=== PATIENT | male | born 1935 | race Caucasian/White ===

== ENCOUNTER → 2017-05-24 | Outpatient (CLI) | payer MEDICARE ==
[~2017-05-24] MED LIST: ADV500 IH; ALLO300T2 PO; AMLO10TA2 PO; ASPI-1012 PO; ATEN100T PO; CETI-101 PO; FURO-152 PO; GEMF600T3 PO; IMIP25TA5 PO; PATI8.4P PO
== END | disposition home or self-care (01) ==
LOC: RAH 12:57
PROVIDERS: ATTEND Urology
DX: N28.1 Cyst of kidney, acquired (principal); N28.89 Other specified disorders of kidney and ureter
CPT/HCPCS: 76770

== ENCOUNTER 2017-08-19 14:42 | Inpatient (IN) | payer MEDICARE ==
[~2017-08-19] VITALS: Ht 185.4 cm; Wt 111.4 kg
[~2017-08-19 14:42] MED LIST changes: -ADV500 IH; -ALLO300T2 PO; -AMLO10TA2 PO; -ASPI-1012 PO; -ATEN100T PO; -CETI-101 PO; +ETOMIDATE 2 MG/ML 10 ML VIAL IVP ONE; -FURO-152 PO; -GEMF600T3 PO; -IMIP25TA5 PO; -PATI8.4P PO; +ROCURONIUM BROMIDE 10MG/1ML 5ML VL IV ONE
[2017-08-19] MEDS ORDERED: IPRATROPIUM/ALBUTEROL SULFATE 3 ML SOLUTION IH ONE ×3 (14:59→19:27)
[2017-08-19 15:06] LABS: BASOPHILS % (AUTO) 0.2 % (0.0-5.0); EOSINOPHILS % (AUTO) 0.4 % (0.0-8.0); HEMATOCRIT 36.8 % (42-54); LYMPHOCYTES % (AUTO) 4.2 % (21.0-51.0); MEAN CORPUSCULAR HEMOGLOBIN 31.3 pg (27.0-33.0); MEAN CORPUSCULAR HGB CONC 33.1 g/dL (32.0-36.0); MEAN CORPUSCULAR VOLUME 94.3 fL (79-99); MONOCYTES % (AUTO) 5.7 % (3.0-13.0); NEUTROPHILS % (AUTO) 89.5 % (40.0-77.0); PLATELET COUNT (AUTO) 229 K/uL (130-400); WHITE BLOOD COUNT (AUTO) 22.2 K/uL (4.8-10.8)
[2017-08-19 15:16] LABS: CREATININE 2.6 mg/dL (0.5-1.5); POTASSIUM 4.5 mmol/L (3.5-5.1)
[2017-08-19 15:20] LABS: ALBUMIN 3.1 g/dL (3.5-5.0); BILIRUBIN,TOTAL 0.4 mg/dL (0.2-1.0)
[2017-08-19 15:29] LABS: B-TYPE NATRIURETIC PEPTIDE 418 pg/mL (0-100)
[2017-08-19] MEDS ORDERED: CEFTRIAXONE SODIUM 1 GM ONE (16:41)
[2017-08-19] MEDS ORDERED: AZITHROMYCIN 500MG+NS 250ML 250 ML IV ONE (16:42)
[2017-08-19] MEDS ORDERED: SODIUM CHLORIDE 0.9% 50 ML IV ONE (16:42)
[2017-08-19] MEDS ORDERED: METHYLPREDNISOLONE SOD SUCC 125MG/2ML VIAL ONE (17:23)
[2017-08-19] MEDS ORDERED: FUROSEMIDE 10 MG/ML 4ML VIAL ONE (18:54)
[2017-08-19] MEDS ORDERED: NITROGLYCERIN 1GM/1 INCH PACKET TD ONE (18:56)
[2017-08-19 20:42] LABS: ABG BASE EXCESS -6.4 mmol/L (-2.0-3.0); ABG HCO3 17.8 mmol/L (21.0-28.0); ABG OXYGEN SATURATION 94.1 % (95.0-99.0); ABG PCO2 32 mmHg (35-48)
[2017-08-19] MEDS ORDERED: LEVOFLOXACIN 500 MG/D5W 100 ML 100 ML ONE (21:26)
[2017-08-20] MEDS ORDERED: POTASSIUM CHLORIDE 10% ELIXIR 20 MEQ/15 ML UDCUP PO PRN ×2 (00:45→12:45)
[2017-08-20] MEDS ORDERED: ACETAMINOPHEN 325 MG TAB PO PRN ×3 (00:45→12:45)
[2017-08-20] MEDS ORDERED: LIDOCAINE HCL-MPF 1% 2ML VIAL IVP PRN (00:45)
[2017-08-20] MEDS ORDERED: POTASSIUM CHLORIDE 20 MEQ ERTAB PO PRN ×2 (00:45→12:45)
[2017-08-20] MEDS ORDERED: MORPHINE SULFATE 2 MG/ML 1ML SYG IVP PRN (00:45)
[2017-08-20] MEDS ORDERED: LACTULOSE 20 GM/30 ML UDCUP PO PRN ×2 (00:45→12:45)
[2017-08-20] MEDS ORDERED: POTASSIUM CHLORIDE 20MEQ/100ML 100 ML IV PRN ×2 (00:45→12:45)
[2017-08-20] MEDS ORDERED: IPRATROPIUM/ALBUTEROL SULFATE 3 ML SOLUTION IH ONE ×3 (02:39→12:21)
[2017-08-20] MEDS ORDERED: MORPHINE SULFATE 4 MG/1ML SYG IVP PRN (06:15)
[2017-08-20 06:28] LABS: BASOPHILS % (AUTO) 0.4 % (0.0-5.0); HEMATOCRIT 37.6 % (42-54); LYMPHOCYTES % (AUTO) 2.6 % (21.0-51.0); MEAN CORPUSCULAR HEMOGLOBIN 31.2 pg (27.0-33.0); MEAN CORPUSCULAR HGB CONC 32.6 g/dL (32.0-36.0); MEAN CORPUSCULAR VOLUME 95.7 fL (79-99); MONOCYTES % (AUTO) 1.8 % (3.0-13.0); NEUTROPHILS % (AUTO) 95.2 % (40.0-77.0); PLATELET COUNT (AUTO) 198 K/uL (130-400); RED BLOOD CELL COUNT(AUTO) 3.93 MIL/uL (4.50-6.20); RED CELL DISTRIBUTION WIDTH 17.1 % (11.0-15.5)
[2017-08-20] MEDS ORDERED: METHYLPREDNISOLONE SOD SUCC 125MG/2ML VIAL ONE (06:32)
[2017-08-20 06:36] LABS: CREATININE 2.6 mg/dL (0.5-1.5); POTASSIUM 4.6 mmol/L (3.5-5.1)
[2017-08-20 07:45] LABS: B-TYPE NATRIURETIC PEPTIDE 576 pg/mL (0-100)
[2017-08-20] MEDS ORDERED: FAMOTIDINE 20MG TAB 20 MG TAB PO SCH (09:00)
[2017-08-20] MEDS ORDERED: LIDOCAINE HCL-MPF 1% 2ML VIAL IJ PRN (12:45)
[2017-08-20] MEDS ORDERED: GUAIFENESIN-DM 200/20 MG 10 ML PO PRN (12:45)
[2017-08-20] MEDS ORDERED: SODIUM CHLORIDE 0.9% 10 ML VIAL IVP SCH (12:45)
[2017-08-20] MEDS ORDERED: ONDANSETRON HCL MDV 20ML 2 MG/ML VIAL IVP PRN (12:45)
[2017-08-20 14:27] VITALS: BP 140/76
[2017-08-20] MEDS ORDERED: ALLO300T2 PO (15:38)
[2017-08-20] MEDS ORDERED: IMIP25TA5 PO (15:38)
[2017-08-20] MEDS ORDERED: FURO-152 PO (15:38)
[2017-08-20] MEDS ORDERED: GEMF600T3 PO (15:38)
[2017-08-20] MEDS ORDERED: AMLO10TA2 PO (15:38)
[2017-08-20] MEDS ORDERED: ASPI-1012 PO (15:38)
[2017-08-20] MEDS ORDERED: ADV500 IH (15:40)
[2017-08-20] MEDS: METHYLPREDNISOLONE SOD SUCC 125MG/2ML VIAL IVP SCH ×2 (15:42→22:41)
[2017-08-20] MEDS ORDERED: CETI-101 PO (15:46)
[2017-08-20 16:56] VITALS: BP 156/55
[2017-08-20 19:00] VITALS: BP 162/81
[2017-08-20] MEDS: IPRATROPIUM/ALBUTEROL SULFATE 3 ML SOLUTION IH SCH ×2 (19:20→23:00)
[2017-08-20] MEDS: BUDESONIDE 0.5 MG/2 ML INH IH SCH (19:28)
[2017-08-20] MEDS: FAMOTIDINE 20MG TAB 20 MG TAB PO SCH (20:34)
[2017-08-20] MEDS: GEMFIBROZIL 600 MG TABLET PO SCH (20:34)
[2017-08-20] MEDS: FUROSEMIDE 20 MG TABLET PO SCH (20:34)
[2017-08-20] MEDS: LEVOFLOXACIN 500 MG/D5W 100 ML 100 ML IV SCH (20:35)
[2017-08-20] MEDS: HYDRALAZINE HCL 20 MG/ML VIAL IV PRN (20:35)
[2017-08-20 22:10] VITALS: BP 147/65
[2017-08-20 23:45] VITALS: BP 153/85
[2017-08-20] MEDS ORDERED: FUROSEMIDE 10 MG/ML 2ML VIAL ONE (23:58)
[2017-08-20] MEDS ORDERED: ALPRAZOLAM 0.25 MG TABLET ONE (23:59)
[2017-08-21] VITALS (9 sets, daily range): BP systolic 134–175; BP diastolic 50–111
[2017-08-21] MEDS ORDERED: FUROSEMIDE 10 MG/ML 2ML VIAL IV SCH
[2017-08-21 03:59] LABS: BASOPHILS % (AUTO) 0.1 % (0.0-5.0); HEMATOCRIT 36.3 % (42-54); MEAN CORPUSCULAR HEMOGLOBIN 31.4 pg (27.0-33.0); MEAN CORPUSCULAR HGB CONC 33.1 g/dL (32.0-36.0); MEAN CORPUSCULAR VOLUME 94.9 fL (79-99); MONOCYTES % (AUTO) 1.8 % (3.0-13.0); NEUTROPHILS % (AUTO) 95.1 % (40.0-77.0); PLATELET COUNT (AUTO) 181 K/uL (130-400); RED BLOOD CELL COUNT(AUTO) 3.82 MIL/uL (4.50-6.20); RED CELL DISTRIBUTION WIDTH 17.1 % (11.0-15.5); WHITE BLOOD COUNT (AUTO) 13.5 K/uL (4.8-10.8)
[2017-08-21 04:02] LABS: CREATININE 3.2 mg/dL (0.5-1.5); POTASSIUM 5.4 mmol/L (3.5-5.1)
[2017-08-21 04:17] LABS: B-TYPE NATRIURETIC PEPTIDE 486 pg/mL (0-100)
[2017-08-21] MEDS: HYDRALAZINE HCL 20 MG/ML VIAL IV PRN (04:22)
[2017-08-21] MEDS: BUDESONIDE 0.5 MG/2 ML INH IH SCH ×2 (06:57→18:34)
[2017-08-21] MEDS: IPRATROPIUM/ALBUTEROL SULFATE 3 ML SOLUTION IH SCH ×4 (06:57→22:17)
[2017-08-21] MEDS: METHYLPREDNISOLONE SOD SUCC 125MG/2ML VIAL IVP SCH ×3 (07:23→23:17)
[2017-08-21] MEDS ORDERED: ALLOPURINOL 300 MG TABLET PO SCH (09:00)
[2017-08-21] MEDS: ASPIRIN 325 MG TABLET PO SCH (09:54)
[2017-08-21] MEDS: CETIRIZINE HCL 5 MG TABLET PO SCH (10:00)
[2017-08-21] MEDS: FAMOTIDINE 20MG TAB 20 MG TAB PO SCH ×2 (10:01→21:09)
[2017-08-21] MEDS: AMLODIPINE BESYLATE 5 MG TAB PO SCH (10:01)
[2017-08-21] MEDS: AMITRIPTYLINE HCL 25 MG TABLET PO SCH (10:01)
[2017-08-21] MEDS: FUROSEMIDE 20 MG TABLET PO SCH (10:01)
[2017-08-21] MEDS: GEMFIBROZIL 600 MG TABLET PO SCH ×2 (10:01→21:09)
[2017-08-21] MEDS ORDERED: ATEN100T PO (10:08)
[2017-08-21] MEDS ORDERED: PATI8.4P PO (10:16)
[2017-08-21] MEDS ORDERED: OSELTAMIVIR PHOSPHATE 75 MG CAP PO SCH (14:15)
[2017-08-21] MEDS ORDERED: SODIUM POLYSTYRENE SULFONATE 15 GM/60 ML ML PO SCH (14:15)
[2017-08-21] MEDS ORDERED: PHARMACY COMMUNICATION MISC SCH (14:15)
[2017-08-21] MEDS ORDERED: AZTREONAM 1 GM in SODIUM CHLORIDE 0.9% 50 ML IV SCH (14:15)
[2017-08-21] MEDS ORDERED: COMPOUND PO MISCELLANEOUS 1 EACH MISC MISC PRN (16:00)
[2017-08-21] MEDS ORDERED: VANCOMYCIN PROTOCOL PER PHARMACY IV SCH (16:15)
[2017-08-21] MEDS ORDERED: COMPOUND IV REFRIGERATED 1 EACH IVSOLN MISC PRN (16:15)
[2017-08-21] MEDS ORDERED: VANCOMYCIN 2 GM in SODIUM CHLORIDE 0.9% 500ML 500 ML IV ONE (16:30)
[2017-08-21] MEDS: ALPRAZOLAM 0.25 MG TABLET PO PRN (17:33)
[2017-08-21] MEDS: AZTREONAM 1 GM VIAL IVP SCH (17:33)
[2017-08-21] MEDS: OSELTAMIVIR PHOSPHATE 300 MG, COMPOUNDING VEHICLE SF NO.9 50 ML PO SCH ×2 (17:38)
[2017-08-21] MEDS: LEVOFLOXACIN 500 MG/D5W 100 ML 100 ML IV SCH (21:10)
[2017-08-22] MEDS: ALPRAZOLAM 0.25 MG TABLET PO PRN ×2 (00:47→21:48)
[2017-08-22] MEDS: IPRATROPIUM/ALBUTEROL SULFATE 3 ML SOLUTION IH SCH ×6 (01:41→22:05)
[2017-08-22 03:50] LABS: BASOPHILS % (AUTO) 0.1 % (0.0-5.0); HEMATOCRIT 36.3 % (42-54); LYMPHOCYTES % (AUTO) 2.5 % (21.0-51.0); MEAN CORPUSCULAR HEMOGLOBIN 31.6 pg (27.0-33.0); MEAN CORPUSCULAR HGB CONC 32.9 g/dL (32.0-36.0); MEAN CORPUSCULAR VOLUME 96.2 fL (79-99); MONOCYTES % (AUTO) 2.4 % (3.0-13.0); NUCLEATED RED BLOOD CELLS 0.1 % (0.0-0.19); PLATELET COUNT (AUTO) 184 K/uL (130-400); RED BLOOD CELL COUNT(AUTO) 3.78 MIL/uL (4.50-6.20); RED CELL DISTRIBUTION WIDTH 17.2 % (11.0-15.5); WHITE BLOOD COUNT (AUTO) 12.7 K/uL (4.8-10.8)
[2017-08-22 03:50] LABS: ABG BASE EXCESS -5.5 mmol/L (-2.0-3.0); ABG HCO3 21.4 mmol/L (21.0-28.0); ABG OXYGEN SATURATION 96.2 % (95.0-99.0); ABG PCO2 46 mmHg (35-48)
[2017-08-22 04:01] LABS: B-TYPE NATRIURETIC PEPTIDE 520 pg/mL (0-100)
[2017-08-22 04:08] VITALS: BP 152/72
[2017-08-22 04:18] LABS: ALBUMIN 2.7 g/dL (3.5-5.0); BILIRUBIN,TOTAL 0.2 mg/dL (0.2-1.0); MAGNESIUM 2.9 mg/dL (1.80-2.40); PHOSPHORUS 5.2 mg/dL (2.5-4.9); TOTAL PROTEIN, SERUM 6.4 g/dL (6.0-8.3)
[2017-08-22] MEDS: METHYLPREDNISOLONE SOD SUCC 125MG/2ML VIAL IVP SCH ×3 (06:32→23:10)
[2017-08-22] MEDS: BUDESONIDE 0.5 MG/2 ML INH IH SCH ×2 (06:35→19:22)
[2017-08-22 08:00] VITALS: BP_SYST 120; BP_SYST 158; BP_DIAS 69; BP_DIAS 77
[2017-08-22] MEDS ORDERED: ATENOLOL 50 MG TABLET PO SCH (09:00)
[2017-08-22] MEDS: FAMOTIDINE 20MG TAB 20 MG TAB PO SCH ×2 (09:08→21:48)
[2017-08-22] MEDS: GEMFIBROZIL 600 MG TABLET PO SCH ×2 (09:08→21:48)
[2017-08-22] MEDS: AMLODIPINE BESYLATE 5 MG TAB PO SCH (09:10)
[2017-08-22] MEDS: ASPIRIN 325 MG TABLET PO SCH (09:10)
[2017-08-22] MEDS: CETIRIZINE HCL 5 MG TABLET PO SCH (09:12)
[2017-08-22] MEDS: ALLOPURINOL 300 MG TABLET PO SCH (09:16)
[2017-08-22] MEDS: AMITRIPTYLINE HCL 25 MG TABLET PO SCH (09:18)
[2017-08-22] MEDS: OSELTAMIVIR PHOSPHATE 300 MG, COMPOUNDING VEHICLE SF NO.9 50 ML PO SCH ×2 (09:27)
[2017-08-22] MEDS: ATENOLOL 50 MG TABLET PO SCH (09:32)
[2017-08-22 11:00] VITALS: BP 149/78
[2017-08-22] MEDS: AZTREONAM 1 GM VIAL IVP SCH (15:09)
[2017-08-22 16:00] VITALS: BP 172/80
[2017-08-22 19:25] VITALS: BP 147/61
[2017-08-22] MEDS: LEVOFLOXACIN 500 MG/D5W 100 ML 100 ML IV SCH (21:48)
[2017-08-23] VITALS (9 sets, daily range): BP systolic 133–166; BP diastolic 56–91
[2017-08-23] MEDS ORDERED: PATI8.4P PO (01:32)
[2017-08-23] MEDS: IPRATROPIUM/ALBUTEROL SULFATE 3 ML SOLUTION IH SCH ×6 (01:46→21:53)
[2017-08-23 04:44] LABS: BASOPHILS % (AUTO) 0.1 % (0.0-5.0); HEMATOCRIT 38.3 % (42-54); LYMPHOCYTES % (AUTO) 2.3 % (21.0-51.0); MEAN CORPUSCULAR HGB CONC 32.2 g/dL (32.0-36.0); MEAN CORPUSCULAR VOLUME 96.4 fL (79-99); MONOCYTES % (AUTO) 2.6 % (3.0-13.0); NUCLEATED RED BLOOD CELLS 0.2 % (0.0-0.19); PLATELET COUNT (AUTO) 158 K/uL (130-400); RED BLOOD CELL COUNT(AUTO) 3.98 MIL/uL (4.50-6.20); RED CELL DISTRIBUTION WIDTH 17.2 % (11.0-15.5); WHITE BLOOD COUNT (AUTO) 9.1 K/uL (4.8-10.8)
[2017-08-23 05:01] LABS: ALBUMIN 2.7 g/dL (3.5-5.0); BILIRUBIN,TOTAL 0.2 mg/dL (0.2-1.0); MAGNESIUM 2.9 mg/dL (1.80-2.40); PHOSPHORUS 5.5 mg/dL (2.5-4.9); POTASSIUM 4.9 mmol/L (3.5-5.1); TOTAL PROTEIN, SERUM 6.2 g/dL (6.0-8.3)
[2017-08-23] MEDS: BUDESONIDE 0.5 MG/2 ML INH IH SCH ×2 (06:14→18:33)
[2017-08-23] MEDS: METHYLPREDNISOLONE SOD SUCC 125MG/2ML VIAL IVP SCH ×3 (06:29→22:44)
[2017-08-23] MEDS: ATENOLOL 50 MG TABLET PO SCH (09:00)
[2017-08-23] MEDS: OSELTAMIVIR PHOSPHATE 300 MG, COMPOUNDING VEHICLE SF NO.9 50 ML PO SCH ×2 (09:58)
[2017-08-23] MEDS: AMITRIPTYLINE HCL 25 MG TABLET PO SCH (09:59)
[2017-08-23] MEDS: FAMOTIDINE 20MG TAB 20 MG TAB PO SCH ×2 (09:59→20:54)
[2017-08-23] MEDS: ASPIRIN 325 MG TABLET PO SCH (10:01)
[2017-08-23] MEDS: CETIRIZINE HCL 5 MG TABLET PO SCH (10:01)
[2017-08-23] MEDS: ALLOPURINOL 300 MG TABLET PO SCH (10:01)
[2017-08-23] MEDS: GEMFIBROZIL 600 MG TABLET PO SCH ×2 (10:02→20:54)
[2017-08-23] MEDS: AMLODIPINE BESYLATE 5 MG TAB PO SCH (10:10)
[2017-08-23 11:41] LABS: ABG BASE EXCESS -6.2 mmol/L (-2.0-3.0); ABG HCO3 20.6 mmol/L (21.0-28.0); ABG OXYGEN SATURATION 96.9 % (95.0-99.0); ABG PCO2 45 mmHg (35-48)
[2017-08-23] MEDS ORDERED: PHARMACY COMMUNICATION MISC SCH (16:00)
[2017-08-23] MEDS: VANCOMYCIN 1.25 GM in SODIUM CHLORIDE 0.9% 250 ML IV SCH (17:00)
[2017-08-23] MEDS: AZTREONAM 1 GM VIAL IVP SCH (17:06)
[2017-08-23] MEDS: FUROSEMIDE 10 MG/ML 4ML VIAL IV SCH (17:06)
[2017-08-23 17:19] LABS: APPEARANCE,URINE Cloudy (CLEAR); BILIRUBIN,URINE Negative (NEGATIVE); COLOR,URINE Yellow (YELLOW); GLUCOSE, URINE (UA) Negative (NEGATIVE); KETONES,URINE Negative (NEGATIVE); LEUKOCYTE ESTERASE ,URINE Small (NEGATIVE); NITRATE,URINE Positive (NEGATIVE); OCCULT BLOOD,URINE Large (NEGATIVE); PROTEIN,URINE POS 2+ (NEGATIVE); UROBILINOGEN,URINE 0.2 mg/dL (0.2-1.0)
[2017-08-23 17:29] LABS: RBC,URINE 26-50 /HPF (0-1)
[2017-08-23 17:30] LABS: BACTERIA,URINE Moderate /HPF (None Seen); MUCUS,URINE Few LPF (None Seen); SQUAMOUS EPITHELIAL CELL,UR 0-2 /HPF (0-2); WBC,URINE 26-50 /HPF (0-1)
[2017-08-23] MEDS: MEROPENEM 500 MG VIAL IVP SCH (19:21)
[2017-08-23] MEDS: LEVOFLOXACIN 500 MG/D5W 100 ML 100 ML IV SCH (20:54)
[2017-08-23] MEDS ORDERED: MEROPENEM 500MG+NS 50ML 50 ML IV SCH (22:00)
[2017-08-24] VITALS (28 sets, daily range): BP systolic 149–192; BP diastolic 54–107
[2017-08-24] MEDS: HYDRALAZINE HCL 20 MG/ML VIAL IV PRN ×3 (01:09→20:32)
[2017-08-24] MEDS: IPRATROPIUM/ALBUTEROL SULFATE 3 ML SOLUTION IH SCH ×6 (01:46→21:21)
[2017-08-24] MEDS: MEROPENEM 500 MG VIAL IVP SCH ×3 (02:20→18:28)
[2017-08-24] MEDS: FUROSEMIDE 10 MG/ML 4ML VIAL IV SCH ×2 (03:10→15:20)
[2017-08-24 04:19] LABS: HEMATOCRIT 39.8 % (42-54); LYMPHOCYTES % (AUTO) 1.4 % (21.0-51.0); MEAN CORPUSCULAR HEMOGLOBIN 31.4 pg (27.0-33.0); MEAN CORPUSCULAR HGB CONC 32.5 g/dL (32.0-36.0); MEAN CORPUSCULAR VOLUME 96.6 fL (79-99); MONOCYTES % (AUTO) 3.5 % (3.0-13.0); NEUTROPHILS % (AUTO) 95.1 % (40.0-77.0); NUCLEATED RED BLOOD CELLS 0.1 % (0.0-0.19); PLATELET COUNT (AUTO) 160 K/uL (130-400); RED BLOOD CELL COUNT(AUTO) 4.12 MIL/uL (4.50-6.20); RED CELL DISTRIBUTION WIDTH 17.1 % (11.0-15.5); WHITE BLOOD COUNT (AUTO) 10.8 K/uL (4.8-10.8)
[2017-08-24 04:38] LABS: ALBUMIN 2.8 g/dL (3.5-5.0); BILIRUBIN,TOTAL 0.2 mg/dL (0.2-1.0); CREATININE 3.2 mg/dL (0.5-1.5); PHOSPHORUS 5.3 mg/dL (2.5-4.9); POTASSIUM 4.8 mmol/L (3.5-5.1); THYROID STIMULATING HORMONE 0.56 uIU/mL (0.36-3.74); TOTAL PROTEIN, SERUM 6.6 g/dL (6.0-8.3); URIC ACID 6.2 mg/dL (2.6-7.2)
[2017-08-24] MEDS: METHYLPREDNISOLONE SOD SUCC 125MG/2ML VIAL IVP SCH ×3 (05:54→23:46)
[2017-08-24] MEDS: BUDESONIDE 0.5 MG/2 ML INH IH SCH ×2 (07:39→18:41)
[2017-08-24] MEDS: THIAMINE HCL 100 MG TABLET PO SCH (08:43)
[2017-08-24] MEDS: CETIRIZINE HCL 5 MG TABLET PO SCH (08:43)
[2017-08-24] MEDS: FAMOTIDINE 20MG TAB 20 MG TAB PO SCH ×2 (08:43→20:31)
[2017-08-24] MEDS: FOLIC ACID/VITAMIN B COMP W-C 1 MG CAPSULE PO SCH (08:44)
[2017-08-24] MEDS: ALLOPURINOL 300 MG TABLET PO SCH (08:44)
[2017-08-24] MEDS: GEMFIBROZIL 600 MG TABLET PO SCH ×2 (08:44→20:31)
[2017-08-24] MEDS: ASPIRIN 325 MG TABLET PO SCH (08:44)
[2017-08-24] MEDS: AMLODIPINE BESYLATE 5 MG TAB PO SCH (08:44)
[2017-08-24] MEDS: AMITRIPTYLINE HCL 25 MG TABLET PO SCH (08:45)
[2017-08-24] MEDS: ENOXAPARIN SODIUM 30 MG/0.3 ML SQ SCH (08:46)
[2017-08-24] MEDS: OSELTAMIVIR PHOSPHATE 300 MG, COMPOUNDING VEHICLE SF NO.9 50 ML PO SCH ×2 (08:48)
[2017-08-24] MEDS: ACETYLCYSTEINE 20% 200MG/ML 4ML VIAL IH SCH ×2 (14:25→21:21)
[2017-08-24] MEDS: ALPRAZOLAM 0.25 MG TABLET PO PRN ×2 (16:03→21:29)
[2017-08-24] MEDS ORDERED: LABETALOL 20 MG/4 ML DISP.SYRIN IV PRN (17:45)
[2017-08-24] MEDS: HYDRALAZINE HCL 25 MG TABLET PO SCH ×3 (17:52→20:36)
[2017-08-24] MEDS ORDERED: LABETALOL HCL 5 MG/ML 20ML VIAL IV ONE (17:59)
[2017-08-24] MEDS ORDERED: LABETALOL HCL 5 MG/ML 20ML VIAL IV PRN (18:00)
[2017-08-24 19:14] LABS: ABG BASE EXCESS -2.7 mmol/L (-2.0-3.0); ABG HCO3 23.7 mmol/L (21.0-28.0); ABG OXYGEN SATURATION 99.3 % (95.0-99.0); ABG PCO2 47 mmHg (35-48)
[2017-08-24] MEDS: LEVOFLOXACIN 500 MG/D5W 100 ML 100 ML IV SCH (20:32)
[2017-08-24] MEDS ORDERED: LORAZEPAM 2 MG/ML 1 ML VIAL IVP ONE (23:30)
[2017-08-24] MEDS ORDERED: LORAZEPAM 2 MG/ML 1 ML VIAL ONE (23:32)
[2017-08-25] VITALS (33 sets, daily range): BP systolic 114–175; BP diastolic 43–82
[2017-08-25] MEDS: IPRATROPIUM/ALBUTEROL SULFATE 3 ML SOLUTION IH SCH ×6 (01:20→22:41)
[2017-08-25] MEDS: MEROPENEM 500 MG VIAL IVP SCH ×3 (02:42→19:36)
[2017-08-25 04:30] LABS: HEMATOCRIT 39.9 % (42-54); MEAN CORPUSCULAR HEMOGLOBIN 31.1 pg (27.0-33.0); MEAN CORPUSCULAR HGB CONC 32.8 g/dL (32.0-36.0); MEAN CORPUSCULAR VOLUME 95.1 fL (79-99); NUCLEATED RED BLOOD CELLS 0.1 % (0.0-0.19); PLATELET COUNT (AUTO) 166 K/uL (130-400); RED BLOOD CELL COUNT(AUTO) 4.19 MIL/uL (4.50-6.20); RED CELL DISTRIBUTION WIDTH 17.1 % (11.0-15.5)
[2017-08-25 04:46] LABS: POTASSIUM 5.2 mmol/L (3.5-5.1)
[2017-08-25] MEDS: METHYLPREDNISOLONE SOD SUCC 125MG/2ML VIAL IVP SCH ×4 (05:49→23:31)
[2017-08-25] MEDS: ACETYLCYSTEINE 20% 200MG/ML 4ML VIAL IH SCH (06:34)
[2017-08-25] MEDS: BUDESONIDE 0.5 MG/2 ML INH IH SCH ×2 (07:05→19:11)
[2017-08-25 07:36] LABS: ABG BASE EXCESS -5.4 mmol/L (-2.0-3.0); ABG HCO3 21.7 mmol/L (21.0-28.0); ABG OXYGEN SATURATION 92.6 % (95.0-99.0); ABG PCO2 49 mmHg (35-48)
[2017-08-25] MEDS ORDERED: SODIUM CHLORIDE 0.9% 1000ML 1,000 ML IV ONE (07:56)
[2017-08-25] MEDS ORDERED: PROPOFOL 1000 MG/100 ML 100 ML IV ONE (08:09)
[2017-08-25] MEDS ORDERED: PROPOFOL 1000 MG/100 ML IV PRN (08:30)
[2017-08-25] MEDS: FAMOTIDINE 20MG TAB 20 MG TAB PO SCH ×2 (09:00→20:21)
[2017-08-25] MEDS: GEMFIBROZIL 600 MG TABLET PO SCH ×2 (09:00→20:20)
[2017-08-25] MEDS: ASPIRIN 325 MG TABLET PO SCH (09:00)
[2017-08-25] MEDS: AMLODIPINE BESYLATE 5 MG TAB PO SCH (09:00)
[2017-08-25] MEDS: ALLOPURINOL 300 MG TABLET PO SCH (09:00)
[2017-08-25] MEDS: CETIRIZINE HCL 5 MG TABLET PO SCH (09:00)
[2017-08-25] MEDS: AMITRIPTYLINE HCL 25 MG TABLET PO SCH (09:00)
[2017-08-25] MEDS: OSELTAMIVIR PHOSPHATE 300 MG, COMPOUNDING VEHICLE SF NO.9 50 ML PO SCH ×2 (09:00)
[2017-08-25] MEDS: FOLIC ACID/VITAMIN B COMP W-C 1 MG CAPSULE PO SCH (09:00)
[2017-08-25] MEDS: HYDRALAZINE HCL 25 MG TABLET PO SCH ×3 (09:00→20:20)
[2017-08-25] MEDS: THIAMINE HCL 100 MG TABLET PO SCH (09:00)
[2017-08-25 09:54] LABS: ABG BASE EXCESS -6.2 mmol/L (-2.0-3.0); ABG HCO3 20.5 mmol/L (21.0-28.0); ABG OXYGEN SATURATION 94.4 % (95.0-99.0); ABG PCO2 45 mmHg (35-48)
[2017-08-25] MEDS ORDERED: SODIUM CHLORIDE 0.9% 1000ML 1,000 ML IV SCH (10:45)
[2017-08-25] MEDS: FUROSEMIDE 10 MG/ML 4ML VIAL IV SCH (11:36)
[2017-08-25] MEDS: ENOXAPARIN SODIUM 30 MG/0.3 ML SQ SCH (11:40)
[2017-08-25] MEDS: FENTANYL 2500MCG+NS 250ML 250 ML IV PRN (12:12)
[2017-08-25] MEDS: PROPOFOL 1000 MG/100 ML 100 ML IV PRN ×3 (13:05→21:28)
[2017-08-25] MEDS: VANCOMYCIN 1.25 GM in SODIUM CHLORIDE 0.9% 250 ML IV SCH (14:48)
[2017-08-25] MEDS: LEVOFLOXACIN 500 MG/D5W 100 ML 100 ML IV SCH (20:21)
[2017-08-26] VITALS (26 sets, daily range): BP systolic 119–152; BP diastolic 42–63
[2017-08-26] MEDS: IPRATROPIUM/ALBUTEROL SULFATE 3 ML SOLUTION IH SCH ×5 (02:37→22:08)
[2017-08-26] MEDS: MEROPENEM 500 MG VIAL IVP SCH ×3 (02:40→19:34)
[2017-08-26 04:10] LABS: HEMATOCRIT 36.5 % (42-54); MEAN CORPUSCULAR HEMOGLOBIN 30.9 pg (27.0-33.0); MEAN CORPUSCULAR HGB CONC 32.8 g/dL (32.0-36.0); MEAN CORPUSCULAR VOLUME 94.3 fL (79-99); NUCLEATED RED BLOOD CELLS 0.1 % (0.0-0.19); PLATELET COUNT (AUTO) 135 K/uL (130-400); RED BLOOD CELL COUNT(AUTO) 3.87 MIL/uL (4.50-6.20); RED CELL DISTRIBUTION WIDTH 16.4 % (11.0-15.5); WHITE BLOOD COUNT (AUTO) 11.3 K/uL (4.8-10.8)
[2017-08-26 04:21] LABS: CREATININE 3.4 mg/dL (0.5-1.5); POTASSIUM 5.1 mmol/L (3.5-5.1)
[2017-08-26 04:40] LABS: ABG BASE EXCESS -2.6 mmol/L (-2.0-3.0); ABG HCO3 22.2 mmol/L (21.0-28.0); ABG OXYGEN SATURATION 96.9 % (95.0-99.0); ABG PCO2 39 mmHg (35-48)
[2017-08-26] MEDS: METHYLPREDNISOLONE SOD SUCC 125MG/2ML VIAL IVP SCH ×4 (05:54→23:29)
[2017-08-26] MEDS: BUDESONIDE 0.5 MG/2 ML INH IH SCH ×2 (06:04→19:23)
[2017-08-26] MEDS: FENTANYL 2500MCG+NS 250ML 250 ML IV PRN (06:37)
[2017-08-26] MEDS: PROPOFOL 1000 MG/100 ML 100 ML IV PRN ×3 (06:37→23:29)
[2017-08-26] MEDS: FUROSEMIDE 10 MG/ML 4ML VIAL IV SCH (08:54)
[2017-08-26] MEDS: ENOXAPARIN SODIUM 30 MG/0.3 ML SQ SCH (08:54)
[2017-08-26] MEDS: GEMFIBROZIL 600 MG TABLET PO SCH ×2 (08:55→20:11)
[2017-08-26] MEDS: AMLODIPINE BESYLATE 5 MG TAB PO SCH (08:55)
[2017-08-26] MEDS: FAMOTIDINE 20MG TAB 20 MG TAB PO SCH ×2 (08:55→20:11)
[2017-08-26] MEDS: THIAMINE HCL 100 MG TABLET PO SCH (08:55)
[2017-08-26] MEDS: ASPIRIN 325 MG TABLET PO SCH (08:55)
[2017-08-26] MEDS: ALLOPURINOL 300 MG TABLET PO SCH (08:55)
[2017-08-26] MEDS: FOLIC ACID/VITAMIN B COMP W-C 1 MG CAPSULE PO SCH (08:55)
[2017-08-26] MEDS: AMITRIPTYLINE HCL 25 MG TABLET PO SCH (08:55)
[2017-08-26] MEDS: HYDRALAZINE HCL 25 MG TABLET PO SCH ×3 (08:56→20:11)
[2017-08-26] MEDS: CETIRIZINE HCL 5 MG TABLET PO SCH (08:56)
[2017-08-26] MEDS: OSELTAMIVIR PHOSPHATE 300 MG, COMPOUNDING VEHICLE SF NO.9 50 ML PO SCH ×2 (09:10)
[2017-08-26] MEDS: LEVOFLOXACIN 500 MG/D5W 100 ML 100 ML IV SCH (20:12)
[2017-08-26] MEDS ORDERED: FENTANYL CITRATE PF 50 MCG/1 ML 2ML VIAL ONE ×2 (22:03→22:12)
[2017-08-26] MEDS ORDERED: SODIUM CHLORIDE 0.9% 0 ML IV ONE (22:03)
[2017-08-26] MEDS ORDERED: FENTANYL CITRATE PF 50 MCG/1 ML 5ML AMP IV ONE (22:07)
[2017-08-26] MEDS ORDERED: SODIUM CHLORIDE 0.9% 250 ML IV ONE (22:13)
[2017-08-27] VITALS (25 sets, daily range): BP systolic 119–154; BP diastolic 40–63
[2017-08-27] MEDS: IPRATROPIUM/ALBUTEROL SULFATE 3 ML SOLUTION IH SCH ×6 (01:34→21:45)
[2017-08-27] MEDS: MEROPENEM 500 MG VIAL IVP SCH ×2 (02:15→20:07)
[2017-08-27 04:21] LABS: HEMATOCRIT 35.2 % (42-54); MEAN CORPUSCULAR HEMOGLOBIN 31.1 pg (27.0-33.0); MEAN CORPUSCULAR HGB CONC 32.8 g/dL (32.0-36.0); MEAN CORPUSCULAR VOLUME 94.8 fL (79-99); NUCLEATED RED BLOOD CELLS 0.1 % (0.0-0.19); PLATELET COUNT (AUTO) 120 K/uL (130-400); RED BLOOD CELL COUNT(AUTO) 3.71 MIL/uL (4.50-6.20); RED CELL DISTRIBUTION WIDTH 16.8 % (11.0-15.5); WHITE BLOOD COUNT (AUTO) 14.7 K/uL (4.8-10.8)
[2017-08-27 04:45] LABS: CREATININE 4.5 mg/dL (0.5-1.5); PHOSPHORUS 6.7 mg/dL (2.5-4.9); POTASSIUM 5.9 mmol/L (3.5-5.1)
[2017-08-27] MEDS: METHYLPREDNISOLONE SOD SUCC 125MG/2ML VIAL IVP SCH ×4 (05:10→23:27)
[2017-08-27] MEDS: BUDESONIDE 0.5 MG/2 ML INH IH SCH ×2 (06:11→18:22)
[2017-08-27] MEDS: PROPOFOL 1000 MG/100 ML 100 ML IV PRN ×3 (06:25→21:03)
[2017-08-27] MEDS ORDERED: ZIPRASIDONE MESYLATE 20 MG/VIAL IM PRN (09:00)
[2017-08-27] MEDS ORDERED: SODIUM POLYSTYRENE SULFONATE 15 GM/60 ML ML PO SCH (09:45)
[2017-08-27] MEDS ORDERED: RENAL DOSE IV PRN (09:45)
[2017-08-27] MEDS: FUROSEMIDE 10 MG/ML 4ML VIAL IV SCH (09:46)
[2017-08-27] MEDS: ENOXAPARIN SODIUM 30 MG/0.3 ML SQ SCH (09:46)
[2017-08-27] MEDS: GEMFIBROZIL 600 MG TABLET PO SCH ×2 (09:47→20:08)
[2017-08-27] MEDS: FAMOTIDINE 20MG TAB 20 MG TAB PO SCH (09:47)
[2017-08-27] MEDS: THIAMINE HCL 100 MG TABLET PO SCH (09:47)
[2017-08-27] MEDS: AMITRIPTYLINE HCL 25 MG TABLET PO SCH (09:47)
[2017-08-27] MEDS: QUETIAPINE FUMARATE 25 MG TAB PO SCH ×2 (09:47→20:08)
[2017-08-27] MEDS: CETIRIZINE HCL 5 MG TABLET PO SCH (09:47)
[2017-08-27] MEDS: FOLIC ACID/VITAMIN B COMP W-C 1 MG CAPSULE PO SCH (09:47)
[2017-08-27] MEDS: AMLODIPINE BESYLATE 5 MG TAB PO SCH (09:47)
[2017-08-27] MEDS: ALLOPURINOL 300 MG TABLET PO SCH (09:47)
[2017-08-27] MEDS: HYDRALAZINE HCL 25 MG TABLET PO SCH ×3 (09:47→20:07)
[2017-08-27] MEDS: ASPIRIN 325 MG TABLET PO SCH (09:47)
[2017-08-27] MEDS: VANCOMYCIN 1.25 GM in SODIUM CHLORIDE 0.9% 250 ML IV SCH (15:04)
[2017-08-27] MEDS: CINACALCET HCL 30 MG TAB PO SCH (20:07)
[2017-08-27] MEDS: FENTANYL 2500MCG+NS 250ML 250 ML IV PRN (20:10)
[2017-08-28] VITALS (25 sets, daily range): BP systolic 129–170; BP diastolic 46–75
[2017-08-28] MEDS: IPRATROPIUM/ALBUTEROL SULFATE 3 ML SOLUTION IH SCH ×6 (02:11→23:00)
[2017-08-28 03:53] LABS: HEMATOCRIT 37.3 % (42-54); MEAN CORPUSCULAR HEMOGLOBIN 32.3 pg (27.0-33.0); MEAN CORPUSCULAR HGB CONC 33.9 g/dL (32.0-36.0); MEAN CORPUSCULAR VOLUME 95.3 fL (79-99); NUCLEATED RED BLOOD CELLS 0.2 % (0.0-0.19); PLATELET COUNT (AUTO) 112 K/uL (130-400); RED BLOOD CELL COUNT(AUTO) 3.92 MIL/uL (4.50-6.20); RED CELL DISTRIBUTION WIDTH 16.7 % (11.0-15.5); WHITE BLOOD COUNT (AUTO) 16.2 K/uL (4.8-10.8)
[2017-08-28 04:01] LABS: ABG BASE EXCESS -4.7 mmol/L (-2.0-3.0); ABG HCO3 22.2 mmol/L (21.0-28.0); ABG OXYGEN SATURATION 92.5 % (95.0-99.0); ABG PCO2 48 mmHg (35-48)
[2017-08-28] MEDS: PROPOFOL 1000 MG/100 ML 100 ML IV PRN (04:12)
[2017-08-28 04:18] LABS: ALBUMIN 2.5 g/dL (3.5-5.0); BILIRUBIN,TOTAL 0.3 mg/dL (0.2-1.0); CREATININE 5.2 mg/dL (0.5-1.5); MAGNESIUM 3.6 mg/dL (1.80-2.40); TOTAL PROTEIN, SERUM 5.7 g/dL (6.0-8.3)
[2017-08-28 04:26] LABS: POTASSIUM 6.8 mmol/L (3.5-5.1)
[2017-08-28] MEDS: METHYLPREDNISOLONE SOD SUCC 125MG/2ML VIAL IVP SCH ×3 (05:28→18:20)
[2017-08-28] MEDS: BUDESONIDE 0.5 MG/2 ML INH IH SCH ×2 (06:21→18:50)
[2017-08-28] MEDS ORDERED: SODIUM BICARB 50MEQ 50ML VIAL IV SCH ×2 (07:17→13:45)
[2017-08-28] MEDS ORDERED: CALCIUM CHLORIDE 100 MG/ML 10 ML SYG IVP SCH ×2 (07:30→13:45)
[2017-08-28] MEDS ORDERED: DEXTROSE 50%-WATER 25 GM/50 ML VIAL IV SCH ×2 (07:30→13:45)
[2017-08-28] MEDS ORDERED: INSULIN HUMULIN R 100 UNIT/ML 3ML IV SCH (07:30)
[2017-08-28] MEDS ORDERED: DEXTROSE 50%-WATER 50 ML DISP.SYRIN IV ONE ×4 (07:43→20:00)
[2017-08-28] MEDS ORDERED: SODIUM POLYSTYRENE SULFONATE 15 GM/60 ML ML PO SCH (08:00)
[2017-08-28] MEDS: QUETIAPINE FUMARATE 25 MG TAB PO SCH ×2 (08:18→20:59)
[2017-08-28] MEDS: CETIRIZINE HCL 5 MG TABLET PO SCH (08:18)
[2017-08-28] MEDS: FUROSEMIDE 10 MG/ML 4ML VIAL IV SCH (08:19)
[2017-08-28] MEDS: MEROPENEM 500 MG VIAL IVP SCH ×2 (08:19→20:58)
[2017-08-28] MEDS: THIAMINE HCL 100 MG TABLET PO SCH (08:19)
[2017-08-28] MEDS: HYDRALAZINE HCL 25 MG TABLET PO SCH ×3 (08:19→20:59)
[2017-08-28] MEDS: FOLIC ACID/VITAMIN B COMP W-C 1 MG CAPSULE PO SCH (08:20)
[2017-08-28] MEDS: ALLOPURINOL 300 MG TABLET PO SCH (08:20)
[2017-08-28] MEDS: GEMFIBROZIL 600 MG TABLET PO SCH ×2 (08:20→20:59)
[2017-08-28] MEDS: FAMOTIDINE 20MG TAB 20 MG TAB PO SCH (08:20)
[2017-08-28] MEDS: AMITRIPTYLINE HCL 25 MG TABLET PO SCH (08:20)
[2017-08-28] MEDS: AMLODIPINE BESYLATE 5 MG TAB PO SCH (08:20)
[2017-08-28] MEDS: ASPIRIN 325 MG TABLET PO SCH (08:20)
[2017-08-28] MEDS: ENOXAPARIN SODIUM 30 MG/0.3 ML SQ SCH (08:22)
[2017-08-28] MEDS: CINACALCET HCL 30 MG TAB PO SCH ×2 (09:00→21:00)
[2017-08-28] MEDS ORDERED: LEVOFLOXACIN 250 MG/D5W 50ML 50 ML IVPB SCH (09:00)
[2017-08-28] MEDS ORDERED: SODIUM POLYSTYRENE SULFONATE 15 GM/60 ML ML ONE ×2 (09:05→09:23)
[2017-08-28] MEDS ORDERED: INSULIN HUMULIN R 100 UNIT/ML 3ML SQ SCH (13:45)
[2017-08-28] MEDS ORDERED: FUROSEMIDE 10 MG/ML 10ML VIAL IVP ONE (14:00)
[2017-08-28] MEDS ORDERED: SODIUM BICARB 50MEQ 50ML VIAL IV ONE (18:45)
[2017-08-28] MEDS ORDERED: DEXTROSE 50%-WATER 25 GM/50 ML VIAL IV ONE (18:45)
[2017-08-28] MEDS ORDERED: CALCIUM CHLORIDE 100 MG/ML 10 ML SYG IVP ONE (18:45)
[2017-08-28] MEDS ORDERED: INSULIN HUMULIN R 100 UNIT/ML 3ML SQ ONE (18:45)
[2017-08-28] MEDS ORDERED: WATER FOR INJECTION,STERILE 5 ML VIAL ONE (20:20)
[2017-08-29] VITALS (11 sets, daily range): BP systolic 120–153; BP diastolic 38–79
[2017-08-29] MEDS: METHYLPREDNISOLONE SOD SUCC 125MG/2ML VIAL IVP SCH ×3 (00:06→11:24)
[2017-08-29] MEDS: IPRATROPIUM/ALBUTEROL SULFATE 3 ML SOLUTION IH SCH ×3 (02:32→10:31)
[2017-08-29] MEDS ORDERED: SODIUM BICARB 50MEQ 50ML VIAL ONE (02:55)
[2017-08-29] MEDS ORDERED: DEXTROSE 50%-WATER 50 ML DISP.SYRIN IV ONE (02:55)
[2017-08-29] MEDS ORDERED: INSULIN HUMULIN R 100 UNIT/ML 3ML SQ SCH (03:00)
[2017-08-29] MEDS ORDERED: CALCIUM CHLORIDE 100 MG/ML 10 ML SYG IVP SCH (03:00)
[2017-08-29] MEDS ORDERED: DEXTROSE 50%-WATER 25 GM/50 ML VIAL IV SCH (03:00)
[2017-08-29] MEDS ORDERED: SODIUM BICARB 8.4% 50ML SYRINGE IVP SCH (03:00)
[2017-08-29] MEDS: PROPOFOL 1000 MG/100 ML 100 ML IV PRN ×2 (03:24→11:25)
[2017-08-29 04:49] LABS: HEMATOCRIT 37.3 % (42-54); MEAN CORPUSCULAR HEMOGLOBIN 31.2 pg (27.0-33.0); MEAN CORPUSCULAR HGB CONC 32.8 g/dL (32.0-36.0); MEAN CORPUSCULAR VOLUME 95.1 fL (79-99); NUCLEATED RED BLOOD CELLS 0.1 % (0.0-0.19); PLATELET COUNT (AUTO) 102 K/uL (130-400); RED BLOOD CELL COUNT(AUTO) 3.93 MIL/uL (4.50-6.20)
[2017-08-29 05:03] LABS: CREATININE 4.9 mg/dL (0.5-1.5); POTASSIUM 5.5 mmol/L (3.5-5.1)
[2017-08-29] MEDS: FENTANYL 2500MCG+NS 250ML 250 ML IV PRN (05:09)
[2017-08-29] MEDS: BUDESONIDE 0.5 MG/2 ML INH IH SCH (06:52)
[2017-08-29] MEDS: CINACALCET HCL 30 MG TAB PO SCH (09:00)
[2017-08-29] MEDS: CETIRIZINE HCL 5 MG TABLET PO SCH (09:35)
[2017-08-29] MEDS: HYDRALAZINE HCL 25 MG TABLET PO SCH (09:35)
[2017-08-29] MEDS: MEROPENEM 500 MG VIAL IVP SCH (09:37)
[2017-08-29] MEDS: ASPIRIN 325 MG TABLET PO SCH (09:37)
[2017-08-29] MEDS: FOLIC ACID/VITAMIN B COMP W-C 1 MG CAPSULE PO SCH (09:37)
[2017-08-29] MEDS: AMLODIPINE BESYLATE 5 MG TAB PO SCH (09:37)
[2017-08-29] MEDS: AMITRIPTYLINE HCL 25 MG TABLET PO SCH (09:38)
[2017-08-29] MEDS: THIAMINE HCL 100 MG TABLET PO SCH (09:38)
[2017-08-29] MEDS: ALLOPURINOL 300 MG TABLET PO SCH (09:38)
[2017-08-29] MEDS: FAMOTIDINE 20MG TAB 20 MG TAB PO SCH (09:38)
[2017-08-29] MEDS: GEMFIBROZIL 600 MG TABLET PO SCH (09:38)
[2017-08-29] MEDS: QUETIAPINE FUMARATE 25 MG TAB PO SCH (09:38)
[2017-08-29] MEDS: FUROSEMIDE 10 MG/ML 4ML VIAL IV SCH (09:39)
[2017-08-29] MEDS: ENOXAPARIN SODIUM 30 MG/0.3 ML SQ SCH (09:43)
== END 2017-08-29 11:29 | disposition hospice, inpatient (51) | DRG 207 ==
LOC: EDH 14:42 → EDHIP 17:30 → OBSVTOIN 17:30 → 3AH 08-20 13:48 → 2BH 08-23 14:05 → 2CH 08-23 16:37
PROVIDERS: ADMIT Internal Medicine; ATTEND Internal Medicine
PROC: 5A09357 Assistance with Respiratory Ventilation, Less than 24 Consecutive Hours, Continuous Positive Airway Pressure (ICD-10-PCS; 2017-08-20)
PROC: 5A09357 Assistance with Respiratory Ventilation, Less than 24 Consecutive Hours, Continuous Positive Airway Pressure (ICD-10-PCS; 2017-08-21)
PROC: 5A09357 Assistance with Respiratory Ventilation, Less than 24 Consecutive Hours, Continuous Positive Airway Pressure (ICD-10-PCS; 2017-08-22)
PROC: 5A1955Z Respiratory Ventilation, Greater than 96 Consecutive Hours (ICD-10-PCS; principal; 2017-08-23)
PROC: 0BH17EZ Insertion of Endotracheal Airway into Trachea, Via Natural or Artificial Opening (ICD-10-PCS; 2017-08-23)
DX: J96.21 Acute and chronic respiratory failure with hypoxia (principal); N17.0 Acute kidney failure with tubular necrosis; J18.9 Pneumonia, unspecified organism; I13.2 Hypertensive heart and chronic kidney disease with heart failure and with stage 5 chronic kidney disease, or end stage renal disease; E11.22 Type 2 diabetes mellitus with diabetic chronic kidney disease; E11.51 Type 2 diabetes mellitus with diabetic peripheral angiopathy without gangrene; E87.0 Hyperosmolality and hypernatremia; I42.9 Cardiomyopathy, unspecified; I50.9 Heart failure, unspecified; E66.01 Morbid (severe) obesity due to excess calories; I50.31 Acute diastolic (congestive) heart failure; J44.0 Chronic obstructive pulmonary disease with (acute) lower respiratory infection; N18.5 Chronic kidney disease, stage 5; E87.2 Acidosis; J44.1 Chronic obstructive pulmonary disease with (acute) exacerbation; J96.22 Acute and chronic respiratory failure with hypercapnia; Z66 Do not resuscitate; E87.5 Hyperkalemia; F17.210 Nicotine dependence, cigarettes, uncomplicated; G47.33 Obstructive sleep apnea (adult) (pediatric); E78.5 Hyperlipidemia, unspecified; I25.10 Atherosclerotic heart disease of native coronary artery without angina pectoris; M19.90 Unspecified osteoarthritis, unspecified site; D64.9 Anemia, unspecified; E21.0 Primary hyperparathyroidism; I48.91 Unspecified atrial fibrillation; N20.0 Calculus of kidney; N28.89 Other specified disorders of kidney and ureter; N40.0 Benign prostatic hyperplasia without lower urinary tract symptoms; Z51.5 Encounter for palliative care; Z96.651 Presence of right artificial knee joint; Z85.828 Personal history of other malignant neoplasm of skin; Z86.010 Personal history of colon polyps; Z87.442 Personal history of urinary calculi; Z95.1 Presence of aortocoronary bypass graft; Z99.81 Dependence on supplemental oxygen; Z68.32 Body mass index [BMI] 32.0-32.9, adult; Z88.0 Allergy status to penicillin; Z88.8 Allergy status to other drugs, medicaments and biological substances
CPT/HCPCS: 31500; 36415; 36600; 71045; 71250; 76770; 80048; 80053; 80202; 81001; 82652; 82803; 82948; 83605; 83735; 83880; 83970; 84100; 84132; 84443; 84550; 85025; 85027; 85378; 93005; 93306; 93970; 94002; 94003; 94640; 94660; 94664; 94667; 94668; 97039; 99291; A4218; A6234; J0360; J0456; J0696; J1650; J1815; J1940; J1956; J2060; J2185; J2270; J2704; J2930; J3010; J3370; J3490; J7030; J7040; J7070; J7608

== ENCOUNTER 2017-08-29 11:30 | Inpatient (IN) | payer OTHER ==
[~2017-08-29 11:30] MED LIST changes: +ADV500 IH; +ALLO300T2 PO; +AMLO10TA2 PO; +ASPI-1012 PO; +ATEN100T PO; +CETI-101 PO; -ETOMIDATE 2 MG/ML 10 ML VIAL IVP ONE; +FURO-152 PO; +GEMF600T3 PO; +IMIP25TA5 PO; +PATI8.4P PO; -ROCURONIUM BROMIDE 10MG/1ML 5ML VL IV ONE
[2017-08-29] MEDS ORDERED: FENTANYL 2500MCG+NS 250ML 250 ML IV PRN (15:15)
[2017-08-29] MEDS ORDERED: LORAZEPAM 2 MG/ML 1 ML VIAL IVP PRN (16:00)
[2017-08-29] MEDS ORDERED: ACETAMINOPHEN 650 MG SUPPOSITORY RC PRN (16:00)
[2017-08-29] MEDS ORDERED: GLYCOPYRROLATE 1 MG/5 ML SYRINGE IV PRN (16:00)
[2017-08-29] MEDS ORDERED: MORPHINE SULFATE 2 MG/ML 1ML SYG IVP PRN (16:00)
[2017-08-29] MEDS ORDERED: MORPHINE SULFATE 4 MG/1ML SYG IVP PRN (16:00)
[2017-08-29] MEDS ORDERED: BISACODYL 10 MG SUPP.RECT RC PRN (16:00)
[2017-08-29] MEDS ORDERED: ONDANSETRON HCL MDV 20ML 2 MG/ML VIAL IVP PRN (16:00)
[2017-08-29 19:00] VITALS: BP 134/52
[2017-08-29 19:30] VITALS: BP 144/70
[2017-08-29 20:00] VITALS: BP 163/96
[2017-08-29 22:01] VITALS: BP 151/64
[2017-08-29 23:01] VITALS: BP 158/50
[2017-08-30] VITALS (16 sets, daily range): BP systolic 130–162; BP diastolic 38–103
[2017-08-30] MEDS: MORPHINE SULFATE 4 MG/1ML SYG IVP PRN ×2 (11:20→16:30)
== END 2017-08-30 21:55 | disposition expired | DRG 208 ==
LOC: 2CH 11:30 → 3AH 08-30 15:39
PROVIDERS: ADMIT Internal Medicine Critical Care Medicine; ATTEND Internal Medicine Critical Care Medicine
PROC: 5A1935Z Respiratory Ventilation, Less than 24 Consecutive Hours (ICD-10-PCS; principal; 2017-08-29)
PROC: 0BH17EZ Insertion of Endotracheal Airway into Trachea, Via Natural or Artificial Opening (ICD-10-PCS; 2017-08-29)
DX: J96.90 Respiratory failure, unspecified, unspecified whether with hypoxia or hypercapnia (principal); J44.9 Chronic obstructive pulmonary disease, unspecified; Z51.5 Encounter for palliative care; Z66 Do not resuscitate; Z88.0 Allergy status to penicillin
CPT/HCPCS: 94003; J2060; J2270; J3010